=== PATIENT | female | born 1925 | race Caucasian/White ===

== ENCOUNTER 2017-02-07 14:02 | Emergency (ER) | payer OTHER ==
[2017-02-07 14:09] VITALS: TEMP 97.9; BMI 27.4
[2017-02-07] MEDS ORDERED: ACETAMINOPHEN 325 MG TABLET (FP) PO ONE (14:20)
--- NOTE | 2017-02-07 14:22 | PDOC ---
History of Present Illness - General Chief Complaint: Injury Stated Complaint: FALL Time Seen by Provider: 02/07/17 14:17 History Source: Patient Exam Limitations: No Limitations - History of Present Illness Initial Comments: 89 y/o F w/sig PMH of hypertension, hyperlipidemia, CHF, COPD, hx of DVT, RA ( on methotrexate) presents from [facility] via EMS s/p fall. Pt states she hit the back of her head on the floor after falling from chair this morning due to trouble getting up. She states she has some headache from the fall mainly located at the site of impact. She denies LOC, dizziness, light-headedness, N/V/ F/C, chest pain, sob, change in vision, change in hearing, abd pain. She c/o of pain at her arms and knees but states that it is chronic pain from arthritis and is not new from today's fall. Past History - Past Medical History Allergies/Adverse Reactions: Allergies Allergy/AdvReac Type Severity Reaction Status Date / Time No Known Allergies Allergy Verified 02/07/17 14:03 Home Medications: Ambulatory Orders Acetaminophen [Tylenol -] 500 mg PO Q4H 02/07/17 Albuterol 0.083% Nebulizer Jennifer [Ventolin 0.083%] 1 neb NEB QID 02/07/17 Cholecalciferol (Vitamin D3) [Vitamin D3] 1,000 unit PO DAILY 02/07/17 Citalopram Hydrobromide [Citalopram HBr] 20 mg PO DAILY 02/07/17 Dronabinol [Marinol] 2.5 mg PO DAILY 02/07/17 Fluticasone/Salmeterol [Advair 250-50 Diskus] 1 each IH BID 02/07/17 Folic Acid 0.8 mg PO DAILY 02/07/17 Hypromellose 0.5% Opth Soln [Artificial Tears] 1 - 2 drop TID 02/07/17 Ipratropium 0.02% Nebulizer [Atrovent] 1 neb NEB TID 02/07/17 Lactulose 10 gm PO DAILY 02/07/17 Lisinopril [Zestril] 2.5 mg PO DAILY 02/07/17 Mag Hydrox/Aluminum Hyd/Simeth [Antacid-Simethicone Liquid] 360 ml PO BID Methotrexate [Mexate -] 5 mg PO Q7D 02/07/17 Metoprolol Tartrate 25 mg PO DAILY 02/07/17 Mirtazapine 30 mg PO DAILY 02/07/17 Multivitamins [Tab-A-Vit -] 1 tab PO DAILY 02/07/17 Omeprazole 20 mg PO DAILY 02/07/17 Polyethylene Glycol 3350 [Powderlax] 1 capl PO DAILY 02/07/17 Tramadol HCl 50 mg PO DAILY 02/07/17 Anemia: No Asthma: No Cancer: No Cardiac Disorders: No CVA: No COPD: Yes CHF: No Dementia: No Diabetes: No GI Disorders: Yes (ACUTE DIVERTICULITIS WITH BOWEL PERFORATION) Disorders: No HTN: Yes Hypercholesterolemia: No Liver Disease: No Psychiatric Problems: Yes Seizures: No Thyroid Disease: No - Surgical History Abdominal Surgery: Yes (BOWEL RESECTION WITH COLOSTOMY) Appendectomy: No Cardiac Surgery: No Cholecystectomy: No Lung Surgery: No Neurologic Surgery: No Orthopedic Surgery: No - Immunization History Immunization Up to Date: Yes - Psycho/Social/Smoking Cessation Hx Anxiety: No Suicidal Ideation: No Smoking Status: No Smoking History: Former smoker Have you smoked in the past 12 months: No Number of Cigarettes Smoked Daily: 0 If you are a former smoker, when did you quit?: Many years ago Information on smoking cessation initiated: No Hx Alcohol Use: No Drug/Substance Use Hx: No Substance Use Type: None Hx Substance Use Treatment: No Review of Systems - Review of Systems Able to Perform ROS?: Yes Comments:: CONSTITUTIONAL: Absent: fever, no chills EYES: Absent: visual changes ENT: Absent: ear pain, hearing changes CARDIOVASCULAR: Absent: chest pain RESPIRATORY: +cough Absent: no SOB GI: Absent: abdominal pain, no nausea, no vomiting MUSCULOSKELETAL: +chronic b/l knee and L arm pain. Absent: back pain, no myalgia NEURO: +headache *Physical Exam - Vital Signs Last Vital Signs Temp Pulse Resp BP Pulse Ox 97.9 F 107 H 18 121/77 98 02/07/17 14:04 02/07/17 14:04 02/07/17 14:04 02/07/17 14:04 02/07/17 14:04 - Physical Exam Comments: GENERAL: Well-appearing, well-nourished. No apparent distress. HEENT: +hematoma on back of head in occiptal region approximately 3-4 cm in diameter, EOM intact. CARDIOVASCULAR: Normal S1, S2. Regular rate and rhythm. PULMONARY: auscultated anteriorly, R sided coarse breath sounds. ABDOMEN: Soft, non-distended, non-tender. EXTREMITIES: Decreased ROM at b/l knees. No gross deformities. 2+ DP pulses. SKIN: +hematoma on back of head Warm, dry. No rash NEUROLOGICAL: No focal neurological deficits. B/L UE, LE, facial sensation to light touch. 02/07/17 15:56 Heart Score/ECG Review - ECG Intrepretation Comment:: Sinus rhythm w/1st degree AV block. LBBB Vent rate: 99bpm QTc 475 ms NE interval [address] segment changes noted. When compared to EKG on 05/2015, current EKG is with vent rate of 41 bpm slower. EKG on 05/2015 with no measurement for NE interval. EKG on 11/2014 with NE interval of 200 ms. ED Treatment Course - RADIOLOGY Radiology Studies Ordered: Category Date Time Status HEAD CT WITHOUT CONTRAST [CT] Stat CT Scan 02/07/17 14:21 Ordered Medical Decision Making - Medical Decision Making 89 y/o F w/sig PMH of hypertension, hyperlipidemia, CHF, COPD, hx of DVT, RA ( on methotrexate) presents from [facility] via EMS s/p fall. Pt states she hit the back of her head on the floor after falling from chair this morning. She states she has some headache from the fall mainly located at the site of impact. She denies LOC, dizziness, light-headedness, N/V/F/C, chest pain, sob, change in vision, change in hearing, abd pain. She c/o of pain at her arms and knees but states that it is chronic pain from arthritis and is not new from today's fall. Ordered: EKG, Head CT, tylenol for pain. 02/07/17 16:27 CT head shows no signs of acute intracranial pathology. Pt is comfortable in bed at this time. No acute events since coming to ER. Pt to be discharged back to [facility]. *DC/Admit/Observation/Transfer Diagnosis at time of Disposition: Fall, Hematoma of occipital surface of head - Discharge Dispostion Admit: No - Referrals Referrals: Osbaldo Brooks MD [Primary Care Provider] - - Patient Instructions Printed Discharge Instructions: How to Prevent Falls Additional Instructions: You will need to follow up with your primary care physician after the emergency room visit. If you develop worsening symptoms including nausea, vomiting, worsening headache , fevers, chills, mental status change come back to the ER. Print Language: SWISS
[2017-02-07] MEDS ORDERED: ACETAMINOPHEN 325 MG TABLET (FP) ONE (14:26)
--- NOTE | 2017-02-07 16:35 | PDOC ---
Attending Attestation - Resident Resident Name: Nikhil Ortiz - ED Attending Attestation I have performed the following: I have examined & evaluated the patient, The case was reviewed & discussed with the resident, I agree w/resident's findings & plan, Exceptions are as noted - HPI HPI: 02/07/17 16:32 89-year-old female with mechanical fall at [facility], occipital head injury sent for evaluation. - Physicial Exam PE: 02/07/17 16:33 small occipital scalp hematoma, no laceration no other injuries, chronic LUE and LLE arthritic changes without acute injury - Medical Decision Making 02/07/17 16:35 Patient seen and evaluated with the resident. I agree with the overall evaluation, assessment, and management with the following summary of visit: 89-year-old female with mechanical fall and prison, isolated minor head injury. Neurologically intact, no red flags on history or physical exam. CT head shows no acute pathology Patient comfortable, agrees with discharge back to [facility]
[2017-02-07 18:07] VITALS: BP 126/88; PULSE 88
--- NOTE | 2017-02-08 16:29 | EKG ---
Test Reason : Blood Pressure : / mmHG Vent. Rate : 099 BPM Atrial Rate : 099 BPM P-R Int : 214 ms QRS Dur : 138 ms QT Int : 378 ms P-R-T Axes : 047 038 145 degrees QTc Int : 485 ms SINUS RHYTHM WITH 1ST DEGREE A-V BLOCK LEFT BUNDLE BRANCH BLOCK ABNORMAL ECG WHEN COMPARED WITH ECG OF 15-MAY-2015 15:07, SINUS RHYTHM HAS REPLACED WIDE QRS TACHYCARDIA Confirmed by HAIDER RIVAS, MCKENNA ([id number]) on 02/08/2017 4:29:28 PM Referred By: Confirmed By:MCKENNA MALONEY MD
== END 2017-02-07 18:07 ==
LOC: JER 14:02
DX: S00.03XA Contusion of scalp, initial encounter (principal); W07.XXXA Fall from chair, initial encounter; Y93.9 Activity, unspecified; Y92.129 Unspecified place in nursing home as the place of occurrence of the external cause; I10 Essential (primary) hypertension; E78.5 Hyperlipidemia, unspecified; J44.9 Chronic obstructive pulmonary disease, unspecified; Z86.718 Personal history of other venous thrombosis and embolism; M06.9 Rheumatoid arthritis, unspecified; I50.9 Heart failure, unspecified
CPT/HCPCS: 70450-TC; 93005; 93010; 99281-25